=== PATIENT | male | born 1955 | race Caucasian/White ===

== ENCOUNTER → 2017-02-04 | Day surgery (SDC) | payer BC ==
[2017-01-10 10:24] VITALS: Ht 172.7 cm; Wt 98.2 kg
[~2017-02-04] VITALS: Ht 172.7 cm; Wt 98.2 kg
[~2017-02-04] MED LIST: LISI10TA PO; LISI20TA11 PO; TAMS0.4C38 PO
== END | disposition home or self-care (01) ==
LOC: EDSTATUS 08:30 → C.PAT 13:20
PROVIDERS: ATTEND Surgery
DX: M25.811 Other specified joint disorders, right shoulder (principal)